=== PATIENT | male | born 1940 | race Caucasian/White ===

== ENCOUNTER 2020-05-31 14:28 | Outpatient (CLI) | payer MEDICARE, SELFPAY ==
--- NOTE | ~2020-05-31 | CT_ITS ---
EXAMINATION: CT sinus wo con DATE: 05/31/2020 14:59 INDICATION: Chronic congestion. Chronic sinusitis. TECHNIQUE: Computed tomography (CT) of the paranasal sinuses was performed without contrast. Iterativ e reconstruction technique was employed. Exam dose: 273.54 mGy-cm total exam DLP. COMPARISON: None FINDINGS: This is minimal rightward bowing of the posterior aspect of the maxillary sinus. The frontal and maxillary sinuses are normally developed and aerated. There is patchy opacification o f scattered bilateral ethmoid air cells. There is complete opacification of the left sphenoid sinus, with some calcification, indicating this is chronic. There is mild mucoperiosteal thickening of the right sphenoid sinus. The osteomeatal units are patent bilaterally. The mastoid air cells are normally developed and aerated. IMPRESSION: Bilateral sphenoid sinusitis, especially on left Patchy bilateral ethmoid opacification Reviewed, dictated and finalized at [facility]. Reviewed, dictated and finalized at [facility].
== END 2020-05-31 14:29 | disposition home or self-care (01) ==
PROVIDERS: PCP Internal Medicine; Visit Provider Otolaryngology
DX: J32.9 Chronic sinusitis, unspecified (principal)
CPT/HCPCS: 70486

== ENCOUNTER 2020-08-24 00:54 | Outpatient (CLI) | payer MEDICARE, SELFPAY ==
[2020-08-24 18:32] LABS: SARS-CoV-2 RNA PCR Negative
== END 2020-08-24 00:55 | disposition home or self-care (01) ==
LOC: ANHCOVIDDT 00:54
PROVIDERS: PCP Internal Medicine; Visit Provider Internal Medicine Gastroenterology
DX: Z01.812 Encounter for preprocedural laboratory examination (principal); Z20.828 Contact with and (suspected) exposure to other viral communicable diseases
CPT/HCPCS: 87635; C9803; U0003

== ENCOUNTER 2020-08-28 02:53 | Day surgery (SDC) | payer MEDICARE, SELFPAY ==
[2020-08-21 10:22] VITALS: BMI 32.8
[2020-08-28 07:02] VITALS: BP 166/66; PULSE 76; RESP 20; TEMP 35.7; O2SAT 98
[2020-08-28] MEDS: LACTATED RINGERS 1,000 ML 150 ML IV CONT (07:21)
[2020-08-28 07:25] LABS: Glucose Point of Care 114 (65-105)
--- NOTE | 2020-08-28 07:46 | WPDHPUPDATE1 ---
History and Physical Update Update Date/Time: 08/28/20 07:46 History and Physical has been reviewed, including an updated exam of the patient. There are NO changes in the patient's condition. Risks, benefits, and alternatives have been discussed and questions answered. Patient agrees to proceed with procedure.
--- NOTE | 2020-08-28 07:47 | WPDANESEPPF ---
Anes - Initial Pre Proc Eval Procedure: Operation Date: 08/28/20 08:30 Proposed Procedures p Colonoscopy - Bry Downey MD Date/Time: 08/28/20 07:47 Surgeon: Bry Downey MD Pre Op Diagnosis: diarrhea Patient Data Age: 80 Gender: M Height: 5 ft 7 in Weight: 93.1 kg Last Vital Signs Temp 96.3 F L 08/28/20 07:02 Pulse 76 08/28/20 07:02 Resp 20 08/28/20 07:02 BP 166/66 H 08/28/20 07:02 Pulse Ox 98 08/28/20 07:02 Allergies Allergy/AdvReac Type Severity Reaction Status Date / Time No Known Allergies Allergy Unverified 08/28/20 07:01 Home Medications Medication Instructions Recorded Confirmed Type acetaminophen 650 mg 650 mg PO Q12H 08/12/20 08/28/20 History tablet,extended release aspirin 81 mg tablet,delayed 81 mg PO DAILY 08/12/20 08/28/20 History release atorvastatin 40 mg tablet 40 mg PO DAILY tablet 08/12/20 08/28/20 History carvedilol 25 mg tablet 25 mg PO BID tablet 08/12/20 08/28/20 History cetirizine 10 mg tablet 10 mg PO DAILY 08/12/20 08/28/20 History cholecalciferol (vitamin D3) 125 125 mcg PO Q48H 08/12/20 08/28/20 History mcg (5,000 unit) capsule clopidogrel 75 mg tablet 75 mg PO DAILY tablet 08/12/20 08/28/20 History ezetimibe 10 mg tablet 10 mg PO DAILY tablet 08/12/20 08/28/20 History glimepiride 1 mg tablet 1 mg PO BID tablet 08/12/20 08/28/20 History hydrochlorothiazide 25 mg tablet 25 mg PO DAILY tablet 08/12/20 08/28/20 History liraglutide 0.6 mg/0.1 mL (18 mg/3 1.2 mg SUBCUT DAILY 08/12/20 08/28/20 History mL) subcutaneous pen injector melatonin 3 mg capsule 3 mg PO HS PRN 08/12/20 08/28/20 History metformin 1,000 mg tablet 1,000 mg PO BID tablet 08/12/20 08/28/20 History multivitamin 1 tablet PO DAILY 08/12/20 08/28/20 History nitroglycerin 400 mcg/spray 1 spray TRANSLINGUAL Q5M PRN 08/12/20 08/28/20 History translingual pantoprazole 40 mg tablet,delayed 40 mg PO BID tablet 08/12/20 08/28/20 History release quinapril 40 mg tablet 40 mg PO BID tablet 08/12/20 08/28/20 History ranolazine 500 mg tablet,extended 500 mg PO BID tablet 08/12/20 08/28/20 History release,12 hr sodium,potassium,mag sulfates 17.5 354 ml PO .COMPLEX #354 ml 08/20/20 08/28/20 Rx gram-3.13 gram-1.6 gram oral soln Laboratory Tests 08/28/20 07:20 POC Capillary Glucose 114 mg/dl H mg/dl (65-105) Patient hx anesthesia problems: none Family hx anesthesia problems: none PMFSH Past Medical History Medical History (Updated 08/12/20 @ 15:48 by Bry Downey MD) Arthritis Black stool Bleeding tendency Cancer Diabetes GERD (gastroesophageal reflux disease) Head ache Heart attack Hepatitis High cholesterol Hypertension Migraine Pacemaker Surgical History Surgical History H/O shoulder surgery History of back surgery History of cancer surgery History of hip surgery Family History Family History Father Diabetes mellitus Mother H/O heart bypass surgery Social History Social History (Updated 08/12/20 @ 15:08 by Saba Nunes) Smoking packs per day: 1 Smoking cigarettes per day: 20.0 Years smoked: 30 Smoking pack-years: 30.00 Smoking status: Former smoker Tobacco type: cigarettes Smoking end date: 09/27/90 Substance use: never Substance use type: does not use Living arrangements: with friend(s) Spiritual care concerns: No Anes - Eval Final PreProcedure Day of Procedure 08/28/20 07:47 Patient weight: overweight Heart: regular rate and rhythm Lungs: clear to auscultation Airway: Mallampati scale class II Neurological: alert and oriented Last oral intake: >/= 8 hours ASA classification: III Emergent: no Anesthetic plan: proceed Anesthesia type and monitoring: general GIVS and standard monitoring Informed Consent: The patient's anesth
[2020-08-28 08:11] VITALS: BP 111/53; PULSE 71; RESP 20; O2SAT 98
[2020-08-28 08:21] VITALS: BP 106/47; PULSE 74; O2SAT 97
[2020-08-28 08:32] VITALS: BP 137/57; PULSE 73; O2SAT 96
== END 2020-08-28 08:42 | disposition home or self-care (01) ==
PROVIDERS: PCP Internal Medicine; Visit Provider Internal Medicine Gastroenterology
PROC: 0DJD8ZZ Inspection of Lower Intestinal Tract, Via Natural or Artificial Opening Endoscopic (ICD-10-PCS; CPT 45378; principal; 2020-08-28 08:30)
DX: Z12.11 Encounter for screening for malignant neoplasm of colon (principal); K64.8 Other hemorrhoids; Z86.010 Personal history of colon polyps; I10 Essential (primary) hypertension; E78.00 Pure hypercholesterolemia, unspecified; E11.9 Type 2 diabetes mellitus without complications; K21.9 Gastro-esophageal reflux disease without esophagitis; I25.2 Old myocardial infarction; Z95.0 Presence of cardiac pacemaker; Z79.84 Long term (current) use of oral hypoglycemic drugs; Z79.02 Long term (current) use of antithrombotics/antiplatelets; Z87.891 Personal history of nicotine dependence
CPT/HCPCS: G0105; J2704; J7120

== ENCOUNTER 2021-03-12 14:43 | Outpatient (CLI) | payer MEDICARE, SELFPAY ==
--- NOTE | ~2021-03-12 | CT_ITS ---
EXAMINATION: CT sinus wo con DATE: 03/12/2021 16:19 INDICATION: Chronic sinusitis TECHNIQUE: Computed tomography (CT) of the paranasal sinuses was performed without contrast. Iterativ e reconstruction technique was employed. Exam dose: 241.32 mGy-cm total exam DLP. COMPARISON: 05/31/2020 CT sinuses FINDINGS: The examination is remarkable for the extensive soft tissue opacification of the mid to pos terior ethmoid air cells bilaterally and complete opacification and expansion of the sphenoid sinuses , with thinning and erosion of the ethmoid septae isbell and sphenoid sinus isbell, consistent with muc ocele. The bony erosion is noted particularly along the inferior and superior isbell of the sphenoid s inuses, including severe thinning of the floor of the right side of the sella turcica and the posteri or wall of the sphenoid sinuses at the clivus. The nasal septum is midline. Intralamellar cell of both middle nasal turbinates, opacified. The ostiomeatal units are patent except for opacification of right ethmoid bulla. There is bilateral focal soft tissue thickening at the inferomedial aspect of the frontal sinuses whi ch are otherwise clear. There is minimal mucoperiosteal thickening of the right maxillary sinus. The mastoid air cells are normally developed and aerated. IMPRESSION: Bilateral ethmoid and sphenoid sinus mucocele; otolaryngology surgical consult is recomm ended. Bilateral middle nasal turbinate opacified intralamellar cell Minimal mucosal periosteal thickening of the right maxillary sinus and focal soft tissue thickening a t the inferomedial aspect of both frontal sinuses Patent ostiomeatal units with the exception of an opacified right ethmoid bulla Reviewed, dictated and finalized at [facility]. Reviewed, dictated and finalized at [facility]. IMPRESSION: Bilateral ethmoid and sphenoid sinus mucocele; otolaryngology surg ical consult is recommended. Bilateral middle nasal turbinate opacified intralamellar cell Minimal mucosal periosteal thickening of the right maxillary sinus and focal so ft tissue thickening at the inferomedial aspect of both frontal sinuses Patent ostiomeatal units with the exception of an opacified right ethmoid bulla
== END 2021-03-12 14:44 | disposition home or self-care (01) ==
LOC: ANHIMG 14:47
PROVIDERS: PCP Internal Medicine; Visit Provider Otolaryngology
DX: J32.9 Chronic sinusitis, unspecified (principal)
CPT/HCPCS: 70486

== ENCOUNTER 2021-04-03 07:46 | Outpatient (CLI) | payer MEDICARE, SELFPAY | END 2021-04-03 07:47 | disposition home or self-care (01) | LOC: ANHAUDIO 07:47 | PROVIDERS: PCP Internal Medicine; Visit Provider Otolaryngology | DX: R42 Dizziness and giddiness (principal) | CPT/HCPCS: 92537; 92540; 92567 ==

== ENCOUNTER 2021-04-21 13:34 | Outpatient (RCR) | payer MEDICARE, SELFPAY ==
--- NOTE | 2021-04-21 15:10 | PTOPEVAL ---
PHYSICAL THERAPY EVALUATION/ DISCHARGE 04-21-21 Thank you for referring Dayne Ren to [facility] for the diagnosis of vertigo/vestibular therapy. His vestibular symptoms have resolved and he no longer has any issues with dizziness. Education was completed and further PT is not indicated at this time. Please review, sign, date and return this evaluation/ discharger report ARVIND. I agree with and certify that the following plan of care is medically necessary. Referring Physician Date Attending Provider: Brice Chau MD PT Outpatient Evaluation Document 04/21/21 14:05 DOMINIQUE (Rec: 04/21/21 14:36 DOMINIQUE [id number]) Past Medical History Neurological History Hx Neurological Disorders No Significant History Cardiovascular History Hx Atrial Fibrillation Yes: ablation in November 2020 Hx Cardiac Catheterization Yes: HEART STENTS Hx Congestive Heart Failure Yes Hx Hypercholesterolemia Yes Hx Hypertension Yes Hx Pacemaker Yes: PACEMAKER [employer] 2017LAST IMPLANTED Hx Other Cardiac Disorders Yes: to see oil scout next month- still not feel right Respiratory History Hx Other Respiratory Disorders Yes: SOB with exertion Gastrointestinal History Hx Cholecystectomy Yes Hx Gastroesophageal Reflux Disease Yes Hx Gastrointestinal Bleed Yes: DARK STOOL DIARRHEA Hx Irritable Bowel Yes: DIARRHEA DARK IN COLOR Hx Polyps Yes Genitourinary History Hx Genitourinary Disorders No Significant History Musculoskeletal History Hx Back Pain Yes: intermittent neck and back pain Hx Joint Replacement Yes: HIP BILATERAL >2 YEARS Hx Orthopedic Surgery Yes: BILATERAL ROTATOR CUFF, CARPAL TUNNEL Hx Spinal Surgery Yes: lumbar surgery x2; cervical x1 surgeries; Hematological History Hx Blood Transfusions Yes: CHOLEY Endocrine History Hx Diabetes Yes: TYPE 2 HEENT History Hx Cataracts Yes: BILATERAL SURGERY Hx Sinus Problems Yes: BLOCKED PASSAGES-not had surgery Hx Other HEENT Disorders Yes: in April to have sinus surgery Integumentary History Hx Excision Skin Lesion Yes: HEAD NON-MELANOMA Pain History History of Any Previous or Ongoing No Significant History Instance of Pain Anesthesia History Hx Anesthesia Reactions No Significant History Other History Hx Cancer Yes: LESION ON HEAD REMOVED Hx Implanted Device Yes: BILATERAL HIPS, PACEMAKER , HEART STENTS, LOW BACK PLATE Evaluation Information Problem Diagnosi
== END 2021-07-07 11:50 | disposition other institution (70) ==
LOC: ANHPT 13:34
PROVIDERS: PCP Internal Medicine; Visit Provider Otolaryngology
DX: R42 Dizziness and giddiness (principal)
CPT/HCPCS: 97161

== ENCOUNTER 2021-05-24 06:32 | Inpatient (IN) | payer MEDICARE, SELFPAY ==
[2021-05-24] VITALS (25 sets, daily range): BP systolic 88–147; BP diastolic 38–81; PULSE 70–92; RESP 19–33; TEMP 35.8–36.3; O2SAT 86–98; BMI 32.1
--- NOTE | 2021-05-24 | ECHO_ITS ---
Patient Info Name: Dayne Ren Age: 81 years : 1940 Gender: Male Ht: 66 in Wt: 199 lbs BSA: 2.08 m2 HR: 60 bpm BP: 110 / 57 mmHg Heart Rhythm: Sinus Rhythm Technical Quality: Good Exam Date: 05/24/2021 1:56 PM Exam Location: [facility] Pulmonary Exam Room: ICU 4 Patient Status: Inpatient Admit Date: 05/24/2021 Staff Ordering Physician: Juvenal Miller MD Dietetics Professor: Rosaura Miranda RDCS Attending Provider: Wilma Mcrae MD Exam Type: CA echo doppler color flow Study Info Indications - PPM - CHF Complete two-dimensional, color flow and Doppler transthoracic echocardiogram is performed. Summary 1. Complete two-dimensional, color flow and Doppler transthoracic echocardiogram is performed. 2. Left ventricular chamber dimension is normal. 3. Left ventricular systolic function is normal, estimated at 60-65%. 4. Left ventricular septal wall motion is abnormal with septal motion related to pacing. 5. Left atrial chamber dimension is mildly enlarged. Left Ventricle Left ventricular chamber dimension is normal. Left ventricular systolic function is normal, estimated at 60-65%. Left ventricular septal wall motion is abnormal with septal motion related to pacing. The left ventricular diastolic function is normal. Right Ventricle Right ventricular chamber dimension is normal. Linear artifact in right ventricle suggestive of catheter(s), pacemaker lead(s), or ICD lead(s). Left Atria Left atrial chamber dimension is mildly enlarged. Right Atria Right atrial chamber dimension is normal. Aortic Valve The aortic valve is trileaflet. There is mild aortic valve sclerosis. Pulmonic Valve The pulmonic valve is normal. Mitral Valve The mitral valve has normal leaflets. There is trace mitral valve regurgitation. Tricuspid Valve The tricuspid valve leaflets are normal. There is trace tricuspid valve regurgitation. Pericardium/Pleural The pericardium appears normal. Aorta The aortic root size at the sinus of Valsalva is normal. Left Ventricular Outflow Tract Name Value Normal LVOT 2D LVOT Diameter 2.1 cm LVOT Doppler LVOT Peak Gradient 7 mmHg LVOT Mean Gradient 5 mmHg LVOT VTI 24 cm LVOT VTI/AV VTI Ratio 0.7 LVOT Stroke Volume 80 ml LVOT CO 21.2 l/min LVOT CI 10.2 l/min/m2 Pulmonic Valve Name Value Normal PV Doppler PV Peak Gradient 5 mmHg Mitral Valve Name Value Normal MV Doppler
--- NOTE | ~2021-05-24 | US_ITS ---
US renal BI DATE: 05/24/2021 14:43 INDICATION: Acute renal insufficiency TECHNIQUE: Real-time imaging of the kidneys and urinary bladder COMPARISON: 05/16/2021 CT abdomen pelvis FINDINGS: The right kidney measures 10.6 cm length, left kidney 11.3 cm. No renal mass lesion or hydronephrosis is evident. There is prominent prostate enlargement impressing the base of the urinary bladder. IMPRESSION: No renal mass lesion or hydronephrosis Prostate enlargement Reviewed, dictated and finalized at [facility] Reviewed, dictated and finalized at [facility].
--- NOTE | ~2021-05-24 | CT_ITS ---
EXAMINATION: CT abdomen pelvis wo con DATE: 05/24/2021 08:17 INDICATION: Abdominal pain and vomiting. TECHNIQUE: Computed tomography (CT) of the abdomen and pelvis was performed without intravenous contr ast. Automated exposure control and iterative reconstruction technique were employed. The dose-length product was 851.66 mGy-cm. COMPARISON: None FINDINGS: Small right pleural effusion with consolidation and volume loss in the basilar segments of the right lower lobe consistent with atelectasis and likely superimposed pneumonia. Small centrilobular nodules with tree-in-bud pattern more anteriorly in the right middle lobe as well as in the lingula consiste nt with endobronchial spread of disease with developing pneumonia. Additional small patchy regions of consolidation at the basilar left lower lobe also suspicious for pneumonia. Cardiomegaly. Atheroscle rotic coronary artery disease. Cardiac pacemaker leads, one terminating at the right atrium and 2 ter minating near the apex of the right ventricle. No pericardial effusion. Cholecystectomy clips at the gallbladder fossa. Liver, spleen, pancreas, right adrenal gland and righ t kidney are normal. 2 cm low-attenuation left adrenal adenoma. 1.6 cm left renal cyst. A couple 2-3 mm nonobstructing stones in the inferior calyx of the left kidney. Minimal perihepatic ascites. Bowel s including the appendix are normal. No obstruction. There is calcified atherosclerosis of the aorta and many of the other arteries. Bladder appears normal but is partially obscured by dense metallic st reak artifact from bilateral total hip arthroplasties. There are bridging osteophytes at multiple lev els in the spine, consistent with diffuse idiopathic skeletal hyperostosis (DISH). Interspinous proce ss device at L4-L5. IMPRESSION: 1. Bibasilar pneumonia greatest in the right lower lobe with small right pleural effusion. 2. Nonspecific minimal amount of perihepatic ascites. No other evident acute intra-abdominal/pelvic p rocess. 3. Cardiomegaly. Reviewed, dictated and finalized at [facility] IMPRESSION: 1. Bibasilar pneumonia greatest in the right lower lobe with small right pleura l effusion. 2. Nonspecific minimal amount of perihepatic ascites. No other evident acute in tra-abdominal/pelvic process. 3. Cardiomegaly.
--- NOTE | ~2021-05-24 | XR_ITS ---
EXAMINATION: XR chest 1V portable DATE: 05/24/2021 07:11 INDICATION: Shortness of breath TECHNIQUE: frontal view of the chest was obtained. COMPARISON: Chest radiograph dated 05/07/2011 FINDINGS: Opacities in the right mid to lower lung zone with blunting of costophrenic angle consistent with sma ll to moderate right pleural effusion with associated basilar atelectasis and/or pneumonia. Left lung remains clear. No pneumothorax or left-sided pleural effusion. The cardiomediastinal silhouette is n ormal. Dual lead pacemaker seen with leads projecting over the expected locations of the right atrium and right ventricle. There is a third presumed disconnected lead with tip at the right ventricle. IMPRESSION: 1. [id number] right pleural effusion with basilar atelectasis and/or pneumonia. Reviewed, dictated and finalized at [facility] IMPRESSION: 1. [id number] right pleural effusion with basilar atelectasis and/or pne umonia.
--- NOTE | 2021-05-24 06:43 | ECG_ITS ---
Measurements Intervals [place] Rate: 78 P: 48 [place]: 226 QRS: -82 QRSD: 181 T: 65 QT: 436 QTc: 500 Interpretive Statements ELECTRONIC VENTRICULAR PACEMAKER BASELINE ARTIFACT- I, III, V2 NO FURTHER INTERPRETATION IS POSSIBLE ATYPICAL ECG Electronically Signed On 05-24-2021 7:06:45 CDT by Walter Abbott D.O.
--- NOTE | 2021-05-24 07:22 | PC.NURSE ---
Spoke to Maikel in lab at 07:23 to add on PT INR PTT, Trop I, BNP
[2021-05-24 07:23] LABS: Anion Gap 14 mmol/L (8-16); Blood Urea Nitrogen 86 mg/dL (9-20); Calcium 9.8 mg/dL (8.4-10.2); Carbon Dioxide 23 mmol/L (22-30); Chloride 92 mmol/L (98-107); Estimated CRCL calculation 26 ml/min; Estimated Glomerular Filt Rate 28; Glucose 171 mg/dL (65-110); Potassium 5.4 mmol/L (3.4-5.0); Sodium 129 mmol/L (137-145)
--- NOTE | 2021-05-24 07:23 | ED.SOB ---
HPI - SOB/Dyspnea General Chief Complaint: Shortness of Breath/Dyspnea Stated Complaint: SOB, heart problems Time Seen by Provider: 05/24/21 07:04 Source: patient, family and RN notes reviewed Limitations: clinical condition History of Present Illness HPI Narrative: This is a 81 year old male with history of hypertension, CAD, stents, CHF who presents for evaluation of shortness of breath for 2 days. Patient is short of breath and lethargic so his is assisting with history. Patient states he is unable to walk more than a few steps due to shortness of breath and weakness. He denies chest pain but his reports shoulder pain that is not present currently. His also reports nonproductive cough that he has had for several weeks due to chronic sinusitis. He has not fever or chills. Patient also has worsening bilateral lower extremity swelling. HE takes spironolactone and hydrochlorothiazide but he has not taken his morning medications. His also states patient has been vomiting but she denies diarrhea. Related Data Home Medications Medication Instructions Recorded Confirmed acetaminophen 650 mg 650 mg PO Q12H 08/12/20 05/24/21 tablet,extended release aspirin 81 mg tablet,delayed 81 mg PO DAILY 08/12/20 05/24/21 release atorvastatin 40 mg tablet 40 mg PO DAILY tablet 08/12/20 05/24/21 glimepiride 1 mg tablet 1 mg PO BIDWM tablet 08/12/20 05/24/21 hydrochlorothiazide 25 mg tablet 25 mg PO DAILY tablet 08/12/20 05/24/21 liraglutide 0.6 mg/0.1 mL (18 mg/3 1.2 mg SUBCUT DAILY 08/12/20 05/24/21 mL) subcutaneous pen injector melatonin 3 mg capsule 3 mg PO HS PRN 08/12/20 05/24/21 metformin 1,000 mg tablet 1,000 mg PO BIDWM tablet 08/12/20 05/24/21 multivitamin 1 tablet PO DAILY 08/12/20 05/24/21 nitroglycerin 400 mcg/spray 1 spray TRANSLINGUAL Q5M PRN 08/12/20 05/24/21 translingual pantoprazole 40 mg tablet,delayed 40 mg PO Q12H tablet 08/12/20 05/24/21 release quinapril 40 mg tablet 40 mg PO Q12H tablet 08/12/20 05/24/21 ranolazine 500 mg tablet,extended 500 mg PO Q12H tablet 08/12/20 05/24/21 release,12 hr carvedilol 6.25 mg PO Q12H 05/24/21 05/24/21 cholecalciferol (vitamin D3) 2,000 unit PO DAILY 05/24/21 05/24/21 [Vitamin D3] diltiazem HCl 420 mg PO HS 05/24/21 05/24/21 magnesium oxide 400 mg PO BID 05/24/21 05/24/21 rivaroxaban [Xarelto] 20 mg PO QPM 05/24/21 05/24/21 spironolactone 50 mg PO DAILY 05/24/21 05/24/21 tizanidine 4 mg PO HS 05/24/21 05/24/21 Allergies Allergy/AdvReac Type Severity Reaction Status Date / Time No Known Allergies Allergy Unverified 08/28/20 07:01 Review of Systems Review of Systems: All systems reviewed & are unremarkable except as noted in HPI and below Constitutional: Constitutional: Denies chills, Reports fatigue, Denies fever(s) and Reports weakness ENT: Reports nasal congestion and Denies sore throat Cardiovascular: Cardiovascular: Denies chest pain and Denies radiating jaw, neck or arm pain Respiratory: Respiratory: Reports cough and Reports dyspnea Gastrointestinal: Gastrointestinal: Reports abdominal pain, Reports nausea and Reports vomiting PMFSH Past Medical History Medical History (Updated 05/24/21 @ 20:24 by Melvi Pelayo MD) Arthritis Black stool Bleeding tendency Cancer Diabetes GERD (gastroesophageal reflux disease) Head ache Heart attack Hepatitis High cholesterol Hypertension Migraine Pacemaker Surgical History Surgical History H/O shoulder surgery History of back surgery History of cancer surgery History of hip surgery Family History Family History Father Diabetes mellitus Chronic obstructive pulmonary disease Hypertension Mother H/O heart bypass surgery Acute myocardial infarction Social History Social History (Updated 08/12/20 @ 15:08 by Saba Nunes) Chun
[2021-05-24 07:26] LABS: Hematocrit 37.3 % (42.0-52.0); Hemoglobin 11.9 g/dL (14.0-18.0); Immature Granulocyte Absolute 0.15 K/mm3 (0.00-0.031); Immature Granulocyte Percent A 0.7 % (0-0.5); Lymphocytes Absolute Auto 0.99 K/mm3 (0.9-3.2); Lymphocytes Percent Auto 4.5 % (18.3-44.2); Mean Corpuscular HGB Conc 31.9 g/dl (32-36); Mean Corpuscular Hemoglobin 32.6 pg (26-34); Mean Corpuscular Volume 102.2 fl (80-100); Mean Platelet Volume 11.3 fl (7.4-10.4); Monocytes Percent Auto 4.6 % (2.6-8.5); Neutrophils Absolute Auto 19.9 K/mm3 (1.3-6.7); Neutrophils Percent Auto 90.2 % (45.5-73.1); Nucleated Red Blood Cells Absolute Auto 0.1 K/mm3 (0.0-0.012); Nucleated Red Blood Cells Perc 0.2 % (0.0-0.2); Platelet Count Result 282 k/mm3 (150-375); Red Blood Count 3.65 M/mm3 (4.6-6.20); Red Cell Distribution Width 14.5 % (11.5-14.5); White Blood Count 22.1 K/mm3 (4.5-10.0)
[2021-05-24 07:43] LABS: Alveolar/Arterial O2 Gradient 167.8 mmHg; Base Excess ABG -4.2 mEq/l (+/-2.0); Carboxyhemoglobin 0.9 % THb (0-2.0); Fractional Inspired Oxygen 40 %; HCO3 ABG 22.5 mEq/l (22.0-26.0); Methemoglobin ABG 0.2 %THb (0-1.5); Oxygen Content ABG 15.1 %vol (16.0-22.0); Oxygen Saturation ABG 88.9 % (95.0-100.0); Oxyhemoglobin 86.9 % THb (90.0-100.0); PCO2 ABG 48.3 mmHg (35.0-45.0); PO2 ABG 61.9 mmHg (80.0-100.0); PO2 FiO2 Ratio Arterial Blood 1.55 %; Total Hemoglobin 12.3 g/dL (12.0-18.0)
[2021-05-24 07:43] LABS: Alanine Aminotransferase 23 U/L (4-50); Albumin Level 3.7 g/dL (3.5-5.1); Alkaline Phosphatase 135 U/L (38-126); Aspartate Amino Transferase 44 U/L (17-59); Lipase 70 U/L (23-300)
[2021-05-24 07:45] LABS: pH ABG 7.287 (7.350-7.450)
[2021-05-24 07:46] LABS: Device NASAL CANNULA; Modified Allen's Test Pass; Site Drawn RIGHT RADIAL
[2021-05-24 07:48] LABS: INR 3.4; Prothrombin Time 33.3 Seconds (11.1-14.7)
[2021-05-24] MEDS: ONDANSETRON INJ 4 MG/2 ML VIAL IV PUSH (07:48)
[2021-05-24 07:49] LABS: Partial Thromboplastin Time 52.3 SECONDS (22.3-36.8)
[2021-05-24] MEDS: ALBUTEROL SULFATE NEB 2.5 MG/0.5 ML INH 5 MG INHALATION ×3 (07:51→20:08)
[2021-05-24] MEDS: IPRATROPIUM BR 0.02% INH SOLN 0.5 MG/2.5 ML VIAL INHALATION ×3 (07:51→20:08)
[2021-05-24 07:53] LABS: NT Pro B Type Natriuretic Pept 5810 pg/mL (5-100)
[2021-05-24 07:59] LABS: Add Urine Microscopic? YES; Amorphous Sediment Urine Few; Appearance Urine Cloudy (Clear); Bacteria Urine Trace /hpf; Bilirubin Urine Negative (Negative); Blood Urine Negative (Negative); Color Urine Amber (Yellow); Glucose Urine UA Negative (Negative); Ketones Urine Negative (Negative); Leukocyte Esterase Ur Negative LEU/UL (Negative); Mucus Urine Rare /lpf; Nitrate Urine Negative (Negative); Protein Urine 1+ mg/dL (Negative); Specific Grav Ur 1.027 (1.001-1.035); Squamous Epithelial Cell Urine Few /hpf (Few); Urobilinogen Urine Negative mg/dL (<2.0)
[2021-05-24 08:10] LABS: Troponin I 0.049 ng/mL (0.000-0.034)
[2021-05-24 08:51] LABS: Lactic Acid Reflex 2.1 mmol/L (0.7-2.1)
[2021-05-24] MEDS: SODIUM CHLORIDE 0.9% IV 500 ML 999 ML IV CONT ×2 (09:14→09:52)
--- NOTE | 2021-05-24 09:26 | PC.NURSE ---
Respiratory at bedside, placed on high flow NC at 10 Li. Patient oxygen saturation currently 94%.
[2021-05-24 09:42] LABS: EDCOVIDSCREEN Negative (Negative)
[2021-05-24] MEDS: SODIUM CHLORIDE 0.9% IV 1,000 ML 999 ML IV CONT (10:23)
[2021-05-24 11:03] LABS: Troponin I 0.051 ng/mL (0.000-0.034)
[2021-05-24 11:35] LABS: Reflex Lactic Acid Yes or No Add Lactic
--- NOTE | 2021-05-24 11:35 | WPDCNINT ---
Assessment and Plan Assessment and plan (1) Hypoxia: Code(s): R09.02 - Hypoxemia Status: Acute Assessment and Plan: Secondary to congestive heart failure effusions and pneumonia Continue supplemental oxygen May need BiPAP Close ICU monitoring (2) Sepsis: Code(s): A41.9 - Sepsis, unspecified organism Status: Acute Assessment and Plan: Secondary to community-acquired pneumonia Conservative IV fluids due to congestive heart failure Blood cultures Rocephin azithromycin Repeat lactic acid level (3) CHF (congestive heart failure): Code(s): I50.9 - Heart failure, unspecified Status: Acute Assessment and Plan: Conservative IV fluids Not a candidate for diuresis at this point due to hypertension Check echocardiogram (4) Pneumonia: Code(s): J18.9 - Pneumonia, unspecified organism Status: Acute Assessment and Plan: See above (5) Suspected COVID-19 virus infection: Code(s): Z20.822 - Contact with and (suspected) exposure to COVID-19 Status: Acute Assessment and Plan: COVID-19 suspected. His rapid test was negative in ED. SARS-CoV-2 PCR is ordered Patient is in Airborne, Droplet and Contact Isolation (6) Coagulopathy: Code(s): D68.9 - Coagulation defect, unspecified Status: Acute Assessment and Plan: Patient appears to be on Coumadin at home Monitor INR Resume Coumadin once INR between 2-3 (7) GERD (gastroesophageal reflux disease): Code(s): K21.9 - Gastro-esophageal reflux disease without esophagitis Status: Acute Assessment and Plan: IV PPI (8) Hypotension: Code(s): I95.9 - Hypotension, unspecified Status: Acute Assessment and Plan: Patient was hypertensive on presentation Sepsis versus cardiogenic Patient was given IV fluids and blood pressure is improved May need vasopressors Hold blood pressure medication Recheck lactic acid level (9) Hyperkalemia: Code(s): E87.5 - Hyperkalemia Status: Acute Assessment and Plan: Patient received IV fluids Recheck BMP now (10) MINE (acute kidney injury): Code(s): N17.9 - Acute kidney failure, unspecified Status: Acute Assessment and Plan: Baseline creatinine unknown Likely pre renal Patient received a conservative amount of IV fluids Monitor electrolytes urine output and creatinine Check renal ultrasound and CK level (11) Diabetes: Code(s): E11.9 - Type 2 diabetes mellitus without complications Status: Inactive Assessment and Plan: Hold p.o. glimepiride and metformin Sliding scale insulin (12) CAD (coronary artery disease): Code(s): I25.10 - Atherosclerotic heart disease of [place] coronary artery without angina pectoris Status: Acute Assessment and Plan: Continue aspirin Plavix and statin Hold beta-cha due to hypertension (13) Elevated troponin: Code(s): R77.8 - Other specified abnormalities of plasma proteins Status: Acute Assessment and Plan: Troponin slightly elevated but likely secondary to demand ischemia as patient does not report chest pain EKG shows paced rhythm Troponin levels have been flat Will repeat again in the evening Continue aspirin Plavix and statin Additional Plan DVT prophylaxis -patient on warfarin Stress ulcer prophylaxis -PPI Nutrition -cardiac diet Code Status -code status was discussed with patient and he requests to be DNR and DNI. He is okay with using CPAP or BiPAP if needed Obtain records from [facility] Total Critical Care Time - 40 minutes Due to a high probability of clinically significant, life threatening deterioration, the patient required my highest level of preparedness to intervene emergently and I personally spent this critical care time directly and personally managing the patient. This critical care time included obtaining a history; examining the patient; pulse oximetr
--- NOTE | 2021-05-24 11:36 | ADMGEN ---
This patient, Dayne Ren, was admitted to Intensive Care Unit-4. Patient/family oriented to hospital policies and general routines including ID bracelet, bed and alarms, visiting hours, pain management, procedures, bathroom and other care routines, personal items, smoking policy, room service/diet, and visiting hours. Information on how to activate the Rapid Response Team has been discussed. Patient/Family are encouraged to report perceived risks to care and to ask questions if they do not understand what they are told or what they should do.
[2021-05-24 13:00] LABS: D Dimer 1.63 ug/mL (<0.48)
[2021-05-24 13:01] LABS: Lactic Acid Reflex 1.6 mmol/L (0.7-2.1)
[2021-05-24 13:09] LABS: Alkaline Phosphatase 95 U/L (38-126); Anion Gap 9 mmol/L (8-16); Blood Urea Nitrogen 80 mg/dL (9-20); CRP > 45.0 mg/dL (<1.0); Calcium 8.5 mg/dL (8.4-10.2); Carbon Dioxide 23 mmol/L (22-30); Chloride 100 mmol/L (98-107); Creatine Kinase 42 U/L (55-170); Estimated CRCL calculation 25 ml/min; Estimated Glomerular Filt Rate 28; Glucose 187 mg/dL (65-110); Lactate Dehydrogenase 379 U/L (313-618); Potassium 5.4 mmol/L (3.4-5.0); Sodium 132 mmol/L (137-145)
[2021-05-24 16:46] LABS: Troponin I 0.056 ng/mL (0.000-0.034)
[2021-05-24 17:18] LABS: Glucose Point of Care 146 mg/dl (65-105)
--- NOTE | 2021-05-24 17:38 | PM.IMHP ---
H&P: HPI History of Present Illness Date/Time: 05/24/21 17:38 81-year-old male with hypertension, diabetes, hyperlipidemia, congestive heart failure unknown EF, CAD, GERD, coagulopathy due to Xarelto, presents to the emergency room via EMS after his son called 911. Patient reports that he has had chronic shortness of breath and dyspnea on exertion for many weeks. However, this morning when he awoke he had acutely worsening shortness of breath and became frightened and called his son for help. Patient is a rather poor historian he is unable to give me a straight answers as to whether not he is unable to lie flat when he sleeps or fever 1st to sit up. He is able to tell me that he becomes breathless walking short distances for example from his bedroom to the bathroom. He denies any fever, chills, recent sick contacts, changes in smell or taste, he does however report recent episode of ongoing diarrhea. In the ER is found to have pulmonary infiltrate and pleural effusions. He was hypoxic on room air requiring 10 L of high-flow and his admission was recommended for further care. Chief Complaint: SOB Review of Systems Review of Systems: All systems reviewed & are unremarkable except as noted in HPI and below PMFSH Past Medical History Medical History (Updated 05/24/21 @ 17:54 by Wilma Mcrae MD) Arthritis Black stool Bleeding tendency Cancer Diabetes GERD (gastroesophageal reflux disease) Head ache Heart attack Hepatitis High cholesterol Hypertension Migraine Pacemaker Surgical History Surgical History H/O shoulder surgery History of back surgery History of cancer surgery History of hip surgery Family History Family History Father Diabetes mellitus Chronic obstructive pulmonary disease Hypertension Mother H/O heart bypass surgery Acute myocardial infarction Social History Social History (Updated 08/12/20 @ 15:08 by Saba Nunes) Smoking packs per day: 1 Smoking cigarettes per day: 20.0 Years smoked: 20 Smoking pack-years: 20.00 Smoking status: Former smoker Tobacco type: cigarettes Smoking end date: 09/27/90 Alcohol intake: never Substance use: never Substance use type: does not use Spiritual care concerns: No Meds Home Medications and Allergies Home Medications Medication Instructions Recorded Confirmed Type acetaminophen 650 mg 650 mg PO Q12H 08/12/20 05/24/21 History tablet,extended release aspirin 81 mg tablet,delayed 81 mg PO DAILY 08/12/20 05/24/21 History release atorvastatin 40 mg tablet 40 mg PO DAILY tablet 08/12/20 05/24/21 History glimepiride 1 mg tablet 1 mg PO BIDWM tablet 08/12/20 05/24/21 History hydrochlorothiazide 25 mg tablet 25 mg PO DAILY tablet 08/12/20 05/24/21 History liraglutide 0.6 mg/0.1 mL (18 mg/3 1.2 mg SUBCUT DAILY 08/12/20 05/24/21 History mL) subcutaneous pen injector melatonin 3 mg capsule 3 mg PO HS PRN 08/12/20 05/24/21 History metformin 1,000 mg tablet 1,000 mg PO BIDWM tablet 08/12/20 05/24/21 History multivitamin 1 tablet PO DAILY 08/12/20 05/24/21 History nitroglycerin 400 mcg/spray 1 spray TRANSLINGUAL Q5M PRN 08/12/20 05/24/21 History translingual pantoprazole 40 mg tablet,delayed 40 mg PO Q12H tablet 08/12/20 05/24/21 History release quinapril 40 mg tablet 40 mg PO Q12H tablet 08/12/20 05/24/21 History ranolazine 500 mg tablet,extended 500 mg PO Q12H tablet 08/12/20 05/24/21 History release,12 hr carvedilol 6.25 mg PO Q12H 05/24/21 05/24/21 History cholecalciferol (vitamin D3) 2,000 unit PO DAILY 05/24/21 05/24/21 History [Vitamin D3] diltiazem HCl 420 mg PO HS 05/24/21 05/24/21 History magnesium oxide 400 mg PO BID 05/24/21 05/24/21 History rivaroxaban [Xarelto] 20 mg PO QPM 05/24/21 05/24/21 History spironolactone 50 mg PO DAILY 05/24/21 05/24/21 History tizanidine 4 mg PO
[2021-05-24] MEDS: RIVAROXABAN 20 MG TABLET PO (18:24)
[2021-05-24 22:03] LABS: Glucose Point of Care 137 mg/dl (65-105)
[2021-05-24] MEDS: MORPHINE SULFATE (*CRX) 2 MG/ML INJ IV PUSH (23:47)
[2021-05-24] MEDS: SCOPOLAMINE 1.5 MG PATCH TRANSDERM (23:49)
[2021-05-25] VITALS: PULSE 70; O2SAT 92
[2021-05-25] MEDS: LORazepam INJ (*CRX) 2 MG/ML VIAL 1 MG IV PUSH (00:28)
--- NOTE | 2021-05-25 00:35 | PC.NURSE ---
0-Patient had taken off his oxygen and desaturated and was unresponsive. Patient is a DNR, patient was placed on a non rebreather. was called confirms DNR wishes. 2300-Family wants patient to be as comfortable as possible. Annita Sierra called and notified.
[2021-05-25 00:40] VITALS: O2SAT 76
[2021-05-25 02:00] VITALS: BP 98/40; PULSE 65; PULSE 75; RESP 27; O2SAT 78
--- NOTE | 2021-05-25 03:01 | PC.NURSE ---
This patient, Dayne Ren, was transferred to [[id number] ] on 05/25/21 at 0301. Personal belongings sent with patient. Report given to [WANG JEAN RN ]. Appropriate documentation sent with patient.
--- NOTE | 2021-05-25 03:33 | PC.NURSE ---
0305 pt received from ICU for palative care . Pt nonresponsive at this time. 2L oxygen on for comfort. Patients family face timed with medical staff & in agreement with palative care. Patients heart rate is in the 30s B/P 87/29 02 sat 77% Pt is a DNR.
[2021-05-25 04:00] VITALS: BP 81/29; PULSE 63; RESP 10; TEMP 35.4; O2SAT 75
[2021-05-25 05:44] VITALS: BP 81/29; PULSE 63; RESP 10; TEMP 35.4; O2SAT 75
--- NOTE | 2021-05-25 07:35 | PC.NURSE ---
0715 Pt found to have no respirations or pulse. [facility] notified
--- NOTE | 2021-05-25 12:15 | P.DN_ITS ---
Discharge Summary Date and Time Date of : 05/25/21 Time of : 07:15 Provider Pronounced By: Julia Reaves Probable Cause of Probable Cause of : cardiopulmonary arrest secondary to sepsis pneumonia Summary Hospital Course: 05/24/21 81-year-old male with hypertension, diabetes, hyperlipidemia, diastolic congestive heart failure unknown EF 65%, CAD, GERD, coagulopathy due to Xarelto, presents to the emergency room via EMS after his son called 911. Patient reports that he has had chronic shortness of breath and dyspnea on exertion for many weeks. However, this morning when he awoke he had acutely worsening shortness of breath and became frightened and called his son for help. Patient is a rather poor historian he is unable to give me a straight answers as to whether not he is unable to lie flat when he sleeps or fever 1st to sit up. He is able to tell me that he becomes breathless walking short distances for example from his bedroom to the bathroom. He denies any fever, chills, recent sick contacts, changes in smell or taste, he does however report recent episode of ongoing diarrhea. In the ER is found to have pulmonary infiltrate and pleural effusions. He was hypoxic on room air requiring 10 L of high-flow and his admission was recommended for further care. Plan: Admit ICU IV antibiotics to cover for cap Labile blood pressures sepsis versus cardiogenic Defer to cook italian style food need for pressor Supplemental oxygen currently on 10 L may need advanced a BiPAP versus intubation Echocardiogram Renal ultrasound Consult critical care cook italian style food Rule out COVID-19 Trend troponins Monitor renal function continue home medications, holding nephrotoxic drugs until blood pressure and renal function improved PPI Patient currently on aspirin, clopidogrel, Xarelto I suspect that he has had coronary artery stenting in addition to atrial fibrillation Xarelto and SCDs 05/25/21 Patient admitted to the intensive care unit in critical condition. Unfortunately, despite maximal medical intervention patient failed to improve. Family was notified and requested comfort measures. He peacefully at 7:15 a.m.; family notified. Additional Data Confirmation of as documented by pronouncing clinician: Pupillary Reflex, Palpable Pulses, Response to Stimuli, Heart Tones and Breath Sounds Name of Provider Notified: Dr. Mcrae Time Provider Notified: 07:45 Provider Requests Autopsy: No Family Requests Autopsy: No Picture Frame Maker Notified: Yes Date [facility] Notified of : 05/25/21 Time [facility] Notified of : 07:40
[2021-05-26 23:32] LABS: SARS-CoV-2 RNA PCR Negative
== END 2021-05-25 09:30 | disposition expired | DRG 871 ==
LOC: ANHED 10:30 → ANHICU 10:35 → ANH3MEDSUR 05-25 03:23
PROVIDERS: Emergency Medicine; Internal Medicine; Admitting Provider Hospitalist; Emergency Provider General Practice; PCP Internal Medicine; Visit Provider Hospitalist
DX: A41.9 Sepsis, unspecified organism (principal); J18.9 Pneumonia, unspecified organism; J96.01 Acute respiratory failure with hypoxia; D68.9 Coagulation defect, unspecified; N17.9 Acute kidney failure, unspecified; I50.30 Unspecified diastolic (congestive) heart failure; Z20.822 Contact with and (suspected) exposure to COVID-19; I46.9 Cardiac arrest, cause unspecified; Z66 Do not resuscitate; K21.9 Gastro-esophageal reflux disease without esophagitis; I11.0 Hypertensive heart disease with heart failure; I95.9 Hypotension, unspecified; I25.10 Atherosclerotic heart disease of native coronary artery without angina pectoris; R77.8 Other specified abnormalities of plasma proteins; E87.5 Hyperkalemia; E11.9 Type 2 diabetes mellitus without complications; E78.5 Hyperlipidemia, unspecified; I25.2 Old myocardial infarction; Z79.01 Long term (current) use of anticoagulants; Z79.82 Long term (current) use of aspirin; Z79.84 Long term (current) use of oral hypoglycemic drugs; Z85.9 Personal history of malignant neoplasm, unspecified; Z87.891 Personal history of nicotine dependence; Z95.0 Presence of cardiac pacemaker; Z95.5 Presence of coronary angioplasty implant and graft
CPT/HCPCS: 36415; 36600; 71045; 74176; 76775; 80048; 80076; 81001; 82375; 82550; 82728; 82805; 82948; 83050; 83605; 83615; 83690; 83880; 84075; 84484; 85025; 85380; 85610; 85730; 86140; 87040; 87077; 87186; 87426; 93005; 93306; 94640; 96365; 96367; 96375; 99285; A9270; C9803; J0456; J0696; J2060; J2270; J2405; J7030; J7040; U0003; U0005